=== PATIENT | female | born 1995 | race Caucasian/White ===

== ENCOUNTER 2016-06-05 21:17 | Emergency (ER) | payer OTHER ==
[2016-06-05 21:24] VITALS: BP 120/72; BMI 34.5
[2016-06-05 21:58] LABS: BILIRUBIN,URINE NEGATIVE (NEGATIVE); BLOOD/HEMOGLOBIN,URINE 2+ (NEGATIVE); GLUCOSE, URINE NEGATIVE (NEGATIVE); KETONES,URINE NEGATIVE (NEGATIVE); LEUKOCYTE ESTERASE ,URINE 1+ (NEGATIVE); NITRITES,URINE NEGATIVE (NEGATIVE); PROTEIN,URINE NEGATIVE (NEGATIVE); UROBILINOGEN,URINE NORMAL (NORMAL)
[2016-06-05 22:05] LABS: APPEARANCE,URINE CLEAR (CLEAR); BACTERIA,URINE 1+ /HPF (NEGATIVE); COLOR,URINE YELLOW (YELLOW); RBC,URINE 0-3 /HPF (NEGATIVE); SQUAMOUS EPITHELIAL CELL,UR FEW /HPF (NEGATIVE)
--- NOTE | 2016-06-05 22:07 | DR.POSSPRE ---
HPI - Time Seen Time seen: 21:55 - Primary Care Physician Primary Care Physician: FACUNDO - HPI Comment HPI Comment: PATIENT IS 18 WEEKS AND HAVING LOWER ABDOMINAL PAIN. NO DYSURIA. HAVE NOT FELT MOVEMENT.NO VAGINAL BLEEDING. - Complaints Chief Complaint Doctors Comments: LOWER ABDOMINAL PAIN, . Chief Complaint:: PAIN IN LOWER ABD SINCE FOR A COUPLE WEEKS, HAVE NOT FELT BABY MOVE AT ALL. . A1. BETH [id number] - Reviewed Nurses Notes Reviewed: Yes - Source History Provided: Patient - Mode of Arrival Mode of Arrival: Ambulatory - Timing Onset of Chief Complaint: 05/22/16 - Context Control: None Symptoms: Missed Period, Feels History of ectopic : No : 2 Para: 0 Abortions: 1 History of: None - Associated Signs and Symptoms Associated Signs and Symptoms: None - Severity If Pain: Moderate Pain Score: 6 If Nausea/Vomiting:: None` - Quality If Vaginal Bleeding:: Other (NONE) If abdominal pain:: Sharp PMH - PMH Past Medical History: No Past Medical History: Asthma Past Surgical History: No - Family History History of Family Medical Conditions: No Family Medical History: Cancer - Social History Type of Tobacco Use: Cigarettes Alcohol Use: None Do you use any recreational Drugs:: No Lives With: Family Lives Where: Home - infectious screening Have you traveled outside the country in the last 6 months?: No Isolation: Standard ROS - Review of Systems Constitutional: No Symptoms Reported Eyes: No Symptoms Reported ENTM: No Symptoms Reported Respiratoy: No Symptoms Reported Cardiovascular: No Symptoms Reported Gastrointestinal/Abdominal: Abdominal Pain Genitourinary: No Symptoms Reported Neurological: No Symptoms Reported Musculoskeletal: No Symptoms Reported Integumentary: No Symptoms Reported Hematologic/Lymphatic: No Symptoms Reported Endocrine: No Symptoms Reported All Other Systems: Reviewed and Negative PE - Vital Signs Vitals: Temperature 99.0 F Pulse Rate 102 Respiratory Rate 16 Blood Pressure [Right Arm] 152/99 Blood Pressure 120/72 O2 Sat by Pulse Oximetry 98 - General Limitations: No Limitations General Appearance: Alert - Head Head Exam: Normal Inspection - Eyes Eye exam: Normal Appearance - ENT ENT Exam: Normal External Ear Exam - Neck Neck Exam: Trachea Midline - Chest Chest Inspection: Symmetric Chest Wall Rise - Respiratory Respiratory Exam: Bilateral Clear to Auscultation - Cardiovascular Cardiovascular Exam: Regular Rate, Normal Rhythm, Normal Heart Sounds - Abdominal Exam Abdominal Exam: Normal Bowel Sounds, Soft, Tenderness Abdominal Tenderness: RLQ, LLQ, Suprapubic - Rectal Rectal Exam: Deferred - Genitourinary Exam: OB: Deferred : OB External Exam: Deferred - Extremities Extremities Exam: Normal Inspection - Back Back Exam: Normal Inspection - Neurologic Neurological Exam: Alert, Oriented X3 - Psychiatric Psychiatric Exam: Anxious - Skin Skin Exam: Normal Color MDM - Additional Information Obtained Additional Information Obtained From: Family - Differential Diagnosis Differential Diagnosis: threatened, Cystitis: acute, Urinary tract infection Course - Treatment Treatment: SEE ORDERS - Education/Counseling Education/Counseling: Patient, Family, Education Educated On: Diagnosis, Needs for Follow Up ROR - Labs Reviewed Laboratory Results Reviewed?: Yes Laboratory: HCG, Quant 80751 mIU/mL (0-6) H 06/05/16 21:50 Specimen Type Clean catch urine 06/05/16 21:50 Urine Color Yellow (YELLOW) 06/05/16 21:50 Urine Appearance Clear (CLEAR) 06/05/16 21:50 Urine pH 5.0 (5.0 - 8.0) 06/05/16 21:50 Ur Specific [place] 1.030 (1.000-1.030) 06/05/16 21:50 Urine Protein Negative (NEGATIVE) 06/05/16 21:50 Urine Glucose (UA) Negative (NEGATIVE) 06/05/16 21:50 Urine Ketones Negative (NEGATIVE) 06/05/16 21:50 Urine Occult Blood 2+ (NEGATIVE) 06/05/16 21:50 Urine Nitrite Negative (NEGATIVE) 06/05/16 21:50 Urine Bilirubin Negative (NEGATIVE) 06/05/16 21:50 Urine Urobilinogen Normal (NORMAL) 06/05/16 21:50 Ur Leukocyte Esterase 1+ (NEGATIVE) 06/05/16 21:50 Urine RBC 0-3 /HPF (NEGATIVE) 06/05/16 21:50 Urine WBC 3-5 /HPF (NEGATIVE) 06/05/16 21:50 Ur Squamous Epith Cells Few /HPF (NEGATIVE) 06/05/16 21:50 Urine Bacteria 1+ /HPF (NEGATIVE) 06/05/16 21:50 Ur Culture Indicated? No/not indicated 06/05/16 21:50 - XRAY XRAY Interpreted by: Radiologist XRAY Findings: REPORT DISCUSS WITH PATIENT. - Diagnosis Discharge Problem: Abdominal pain affecting - Discharge Plan Disposition: HOME, SELF-CARE Condition: Stable - Follow ups/Referrals Follow ups/Referrals: NFD,None [Primary Care Provider] - 06/06/16 - Instructions Instructions: Abdominal Pain During , [id number] Additional Instructions: RETURN TO ED IF WORSE. SEE OB DR. DICKSON AM.
--- NOTE | 2016-06-05 23:54 | US ---
Exam: Transabdominal pelvic ultrasound History: Pelvic pain, Comparison: No prior ultrasound for comparison Technique: Grayscale, color, and power Doppler imaging of the pelvis was performed using a transabdo jojo approach. Findings: There is an intrauterine fetus. heart rate is 142 beats per min. Estimated gestatio nal age is 20 weeks 1 day. Placenta is anteriorly located. No evidence of hemorrhage. Conclusion: Single intrauterine fetus estimated gestational age 20 weeks 1 day. Reported By:
== END 2016-06-06 00:11 | disposition home or self-care (01) ==
LOC: ER 21:32
DX: R10.31 Right lower quadrant pain (principal); Z3A.20 20 weeks gestation of pregnancy
CPT/HCPCS: 36415; 76815; 81001; 84702; 87086; 99283; 99284

== ENCOUNTER → 2016-10-14 | Outpatient (CLI) | payer OTHER ==
[2016-10-14 16:47] LABS: BILIRUBIN,URINE NEGATIVE (NEGATIVE); BLOOD/HEMOGLOBIN,URINE 3+ (NEGATIVE); GLUCOSE, URINE NEGATIVE (NEGATIVE); KETONES,URINE 2+ (NEGATIVE); LEUKOCYTE ESTERASE ,URINE 3+ (NEGATIVE); NITRITES,URINE NEGATIVE (NEGATIVE); PROTEIN,URINE 2+ (NEGATIVE); UROBILINOGEN,URINE 1+ (NORMAL)
[2016-10-14 16:49] LABS: BASOPHILS # (AUTO) 0.1 X10^3/uL (0.0-0.1); BASOPHILS % (AUTO) 0.5 % (0.2-1.0); EOSINOPHILS # (AUTO) 0.4 x10^3/uL (0.0-0.2); EOSINOPHILS % (AUTO) 2.7 % (0.9-2.9); HEMATOCRIT 38.6 % (36.0-47.0); HEMOGLOBIN 13.1 g/dL (12.0-16.0); LYMPHOCYTES # (AUTO) 2.2 X10^3/uL (1.3-2.9); LYMPHOCYTES % (AUTO) 16.1 % (21.0-51.0); MEAN CORPUSCULAR HEMOGLOBIN 27.7 pg (27.0-34.0); MEAN CORPUSCULAR HGB CONC 33.9 g/dL (33.0-35.0); MEAN CORPUSCULAR VOLUME 81.7 fL (80.0-100.0); MONOCYTES # (AUTO) 0.6 x10^3/uL (0.3-0.8); MONOCYTES % (AUTO) 4.2 % (0.0-13.0); NEUTROPHILS # (AUTO) 10.5 x10^3/uL (2.2-4.8); NEUTROPHILS % (AUTO) 76.5 % (42.0-75.0); PLATELET COUNT 254 X10^3/uL (150.0-450.0); RED BLOOD COUNT 4.73 X10^6/uL (3.5-5.4); RED CELL DISTRIBUTION WIDTH 14.8 % (11.6-16.5); WHITE BLOOD COUNT 13.7 X10^3/uL (3.6-10.0)
[2016-10-14 16:51] LABS: BLOOD UREA NITROGEN 11 mg/dL (7-18); CARBON DIOXIDE 23.1 mmol/L (21-32); CHLORIDE 104 mmol/L (98-107); CREATININE 0.61 mg/dL (0.55-1.02); GLUCOSE 104 mg/dL (65-99); SODIUM 137 mmol/L (136-145); eGFR BLACK RACES > 60 (>60); eGFR NON BLACK RACES > 60 (>60)
[2016-10-14 16:57] LABS: APPEARANCE,URINE HAZY (CLEAR); COLOR,URINE YELLOW (YELLOW); RBC,URINE 0-3 /HPF (NEGATIVE)
[2016-10-14 16:58] LABS: BACTERIA,URINE 1+ /HPF (NEGATIVE); SQUAMOUS EPITHELIAL CELL,UR FEW /HPF (NEGATIVE)
== END ==
LOC: LAB 16:17
PROVIDERS: ATTEND Specialist
DX: Z01.818 Encounter for other preprocedural examination (principal); Z34.83 Encounter for supervision of other normal pregnancy, third trimester
CPT/HCPCS: 36415; 80048; 81001; 85025; 86592; 86850; 86900; 86901; 87086

== ENCOUNTER 2016-10-16 06:36 | Inpatient (IN) | payer OTHER ==
[~2016-10-16 06:36] MED LIST: D5 1/2 NS 1000 ML 1,000 ML IV ONE; D5 1/2 NS 1000ML W PITOCIN 20 U/L 1,000 ML IV ONE; D5LR 1L W PITOCIN 10 UNITS/L 1,000 ML IV ONE; FENTANYL INJ 100 mcg ONE; LR 1000 ML IV 1,000 ML IV ONE; NAROPIN EPIDURAL 0.2% + FENTANYL 90MCG 60 ML EPI ONE; PITOCIN ONE
--- NOTE | 2016-10-16 07:15 | DR.OB ---
OB Quick Note - Assessment/Plan Assessment/Plan: L&D 10/16/16 at 7:00am S-No complaint. O-Afebrile,VSS BBV=395 with good LTV, +accel, no decel. CTX=none CVX=1cm/thick/-1/VTX AROM with clear fluid. IUPC placed. A-IUP at 39 2/7 weeks for induction P-Begin pitocin induction Anticipate
[2016-10-16] MEDS ORDERED: MORPHINE SULFATE INJ 2 MG IVP PRN (07:28)
[2016-10-16] MEDS ORDERED: NUBAIN INJ 200 MG VIAL MULTIDOSE IVP PRN (07:28)
[2016-10-16] MEDS ORDERED: D5 1/2 NS 1000 ML 1,000 ML IV SCH (07:28)
[2016-10-16] MEDS ORDERED: PHENERGAN INJ 25 MG IV PRN ×2 (07:28→18:13)
[2016-10-16] MEDS ORDERED: PITOCIN IVP ONE (07:28)
[2016-10-16] MEDS ORDERED: REGLAN INJ 10 MG VIAL IVP PRN ×4 (07:28→18:13)
[2016-10-16] MEDS ORDERED: PITOCIN 10 UNITS in D5 LR 1000 ML 1,000 ML IV PRN (07:28)
[2016-10-16] MEDS ORDERED: NUBAIN INJ 10 ONE (11:50)
--- NOTE | 2016-10-16 12:13 | DR.OB ---
OB Quick Note - Assessment/Plan Assessment/Plan: L&D 10/16/16 at 12:10pm Pitocin=16mu/min. S-No complaint. O-Afebrile,VSS OXF=472 with good LTV, +accel, no decel. CTX=q 1 1/2 to 2 min., about 55-65mmHg CVX=2-3cm/50%/-1/VTX A-IUP at 39 2/7 weeks for induction P-Cont. pitocin induction Anticipate
[2016-10-16] MEDS ORDERED: LR 1000 ML IV 1,000 ML IV ONE ×3 (13:30→16:42)
[2016-10-16] MEDS: FENTANYL INJ 100 mcg EPI ONE ×2 (13:59→14:00)
[2016-10-16] MEDS ORDERED: NAROPIN EPIDURAL 0.2% 60 ML with FENTANYL INJ 100 mcg 90 MCG IVP SCH ×2 (15:00)
[2016-10-16] MEDS ORDERED: XYLOCAINE 2 % (PLAIN) ONE (15:42)
[2016-10-16] MEDS ORDERED: PITOCIN ONE (15:42)
[2016-10-16] MEDS ORDERED: DIPRIVAN VIAL ONE (15:42)
[2016-10-16] MEDS ORDERED: ZOFRAN INJ 4 MG VIAL ONE (15:42)
[2016-10-16] MEDS ORDERED: NS 50 ML IV + SPIKE MINIBAG* 50 ML IV ONE (16:33)
[2016-10-16] MEDS ORDERED: ANCEF VIAL 1 GM ONE (16:33)
[2016-10-16] MEDS ORDERED: XYLOCAINE 2% and EPINEPHRINE 1:100,000 ONE (16:37)
--- NOTE | 2016-10-16 16:50 | DR.OB ---
OB Quick Note - Assessment/Plan Assessment/Plan: L&D 10/16/16 at 4:30pm Pitocin=16mu/min. S-No complaint. s/p epidural. O-Afebrile,VSS EGG=591 with poor LTV, occ. accel, repetitive mild variables with intermittent late decels. CTX=q 1 1/2 min., about 35-55mmHg CVX=3cm/50%/-1/VTX with caput forming (no change since at least noon) A-IUP at 39 2/7 weeks with failure to dilate and non-reassuring FHT P-To C/S
[2016-10-16] MEDS ORDERED: NS IRRIGATION 1000 ML 1,000 ML IR ONE (17:15)
[2016-10-16] MEDS ORDERED: DURAMORPH ONE (17:21)
[2016-10-16] MEDS ORDERED: BENADRYL INJ 50 MG VIAL IVP PRN ×2 (17:54→18:13)
[2016-10-16] MEDS ORDERED: PHENERGAN INJ 25 MG IVP PRN (17:54)
[2016-10-16] MEDS ORDERED: ZOFRAN INJ 4 MG VIAL IVP PRN ×2 (17:54→18:13)
[2016-10-16] MEDS ORDERED: TORADOL 30 MG VIAL IVP PRN (18:13)
[2016-10-16] MEDS ORDERED: PERCOCET TAB 5/325 MG PO PRN (18:13)
[2016-10-16] MEDS ORDERED: NARCAN INJ IVP PRN (18:13)
[2016-10-16] MEDS ORDERED: ADACEL TDaP IM ONE ×2 (18:13→21:18)
[2016-10-16] MEDS ORDERED: D5 1/2 NS 1000 ML 1,000 ML with PITOCIN 20 UNITS IV SCH ×2 (18:13)
[2016-10-16] MEDS ORDERED: MYLICON TAB 80 MG CHEW PO PRN (18:13)
[2016-10-16] MEDS: ZANTAC PO SCH (21:22)
[2016-10-17 05:20] LABS: HEMATOCRIT 32.5 % (36.0-47.0); HEMOGLOBIN 11.1 g/dL (12.0-16.0)
[2016-10-17] MEDS ORDERED: PRENATAL PLUS PO SCH (09:00)
[2016-10-17] MEDS: ZANTAC PO SCH ×2 (09:33→20:49)
[2016-10-17] MEDS: COLACE CAP 100 MG PO SCH ×2 (09:33→20:49)
[2016-10-17] MEDS: MOTRIN TAB 800 MG PO PRN (13:29)
[2016-10-17] MEDS: BACTROBAN OINT TOP SCH ×2 (14:30→22:07)
[2016-10-17] MEDS: PERCOCET TAB 5/325 MG PO PRN (20:49)
[2016-10-18] MEDS: MOTRIN TAB 800 MG PO PRN (02:19)
[2016-10-18] MEDS: BACTROBAN OINT TOP SCH (05:44)
[2016-10-18] MEDS: PERCOCET TAB 5/325 MG PO PRN (06:08)
[2016-10-18 08:07] VITALS: BP 113/57
== END 2016-10-18 11:00 | disposition home or self-care (01) | DRG 766 ==
LOC: LD 06:36 → MED/SURG 18:18
PROVIDERS: ADMIT Specialist; ATTEND Specialist
PROC: 3E0234Z Introduction of Serum, Toxoid and Vaccine into Muscle, Percutaneous Approach (ICD-10-PCS; 2016-10-16)
PROC: 10D00Z1 Extraction of Products of Conception, Low, Open Approach (ICD-10-PCS; principal; 2016-10-16 16:45)
DX: O62.0 Primary inadequate contractions (principal); Z37.0 Single live birth; O77.8 Labor and delivery complicated by other evidence of fetal stress; Z3A.39 39 weeks gestation of pregnancy; Z23 Encounter for immunization
CPT/HCPCS: 36415; 85014; 85018; 94760; A4216; A4222; S0197; J0690; J1885; J2001; J2300; J2405; J2590; J3010; J3490; J7042; J7120

== ENCOUNTER 2017-02-02 23:46 | Emergency (ER) | payer OTHER ==
[2017-02-02 23:54] VITALS: BMI 33.3
[2017-02-03] MEDS ORDERED: ASPIRIN PO ONE (00:35)
[2017-02-03 00:38] VITALS: BP 114/69
--- NOTE | 2017-02-03 00:38 | DR.GENAD ---
HPI - PCP Primary Care Physician: GUILLERMO - Complaint/Symptoms Chief Complaint Doctors Comments: Patient is complaining of dizziness, weakness with headache and problems with stress and is worried that her blood pressure maybe elevated. states she hasa been feeling dizzy all day and has not been able to work with chest pain and feeling like her heart fluttering from 6am. statse she smokes 1/2 pack cigarettes daily but denies alcohol or drug usage. states she had had normal periods and just had a child four months ago and has not been sexually active since child . States she has been having nocturia but denies fever, chills, nausea, hematuria. States she has been having a lot of stress because her child has respiratory problems and she has to be up at night giving her breathing treatments and watching her breath. She has been having nasal congestion but no problems with her balance. Chief Complaint:: LIGHT HEADED; WEAK; POUNDING HEADACHE Self Treatment fo Chief Complaint: NO TX - Nurses notes reviewed Nurses Notes Review: Yes - Source History Provided: Patient - Mode of Arrival Mode of Arrival: Ambulatory - Timing Onset of Chief Complaint: 02/02/17 Came on: Gradually - Duration Duration: Constant How lon Duration: Hours - Location Location: chest pain - Severity Severity: Mild - Modifying Factors Worsens:: nothing Improves:: nothing PMH - PMH Past Medical History: No Past Medical History: Asthma Past Surgical History: Yes Surgical History: - Family History History of Family Medical Conditions: No Family Medical History: Cancer - Social History Does patient currently use any type of tobacco product: Yes Have you used tobacco products in the last 12 months: Yes Type of Tobacco Use: None Do you use any recreational Drugs:: No Lives With: Family Lives Where: Home - infectious screening Have you traveled outside the country in the last 6 months?: No ROS - Review of Systems Constitutional: No Symptoms Reported, Weakness, Loss of Appetite. negative: See HPI, Chills, Diaphoresis, Fever, Malaise, Irritable, Fatigue, Other Eyes: No Symptoms Reported. negative: See HPI, Eye Pain, Blurred Vision, Tearing, Discharge, Photophobia, Diplopia, Other ENTM: No Symptoms Reported Respiratoy: No Symptoms Reported, Short of Breath Cardiovascular: Chest Pain, Palpitations. negative: No Symptoms Reported, See HPI, Edema, Syncope, Cyanosis, Skin Mottling, Other Gastrointestinal/Abdominal: No Symptoms Reported. negative: See HPI, Abdominal Pain, Constipation, Diarrhea, Nausea, Vomiting, Food Intolerance, Other Genitourinary: No Symptoms Reported, Frequency. negative: See HPI, Discharge, Dysuria, Hematuria, Pain, Bleeding, Other Neurological: No Symptoms Reported, Anxiety, Emotional Problems, Headache, Weakness, Dizziness. negative: See HPI, Depressed, Numbness, Paresthesia, Pre- existing Deficit, Seizure, Tingling, Tremors, Problems Walking, Speech Problem, Other Musculoskeletal: No Symptoms Reported Integumentary: No Symptoms Reported Hematologic/Lymphatic: No Symptoms Reported Endocrine: No Symptoms Reported Psychiatric: No Symptoms Reported, Anxiety PE - Vital Signs Vitals: Temperature 97.8 F Pulse Rate [Right Brachial] 88 Pulse Rate 84 Respiratory Rate 17 Blood Pressure [Left Arm] 113/57 Blood Pressure [Right Arm] 114/69 Blood Pressure 124/75 O2 Sat by Pulse Oximetry 100 - General Limitations: No Limitations General Appearance: Alert, In No Apparent Distress. negative: Appears Intoxicated, Anxious, Lethargic, Obtunded, In Distress, Obese, Cachectic, Other - Head Head Exam: Normal Inspection, Atraumatic, Normocephalic - Eyes Eye exam: Normal Appearance, PERRL, EOMI. negative: Scleral Icterus, Conjunctival Injection, Nystagmus, Miosis, Mydrasis, Periorbital Swelling, Periorbital Tenderness, Other - ENT ENT Exam: Normal Exam, Normal Oropharynx, Normal External Ear Exam, Mucous Membranes Moist, TM's Normal Bilaterally External Ear Exam: Normal External Inspection TM/Canal Exam: Bilateral Normal Nose Exam: Normal Nose Exam Mouth Exam: Normal Inspection Throat Exam: Normal Inspection - Neck Neck Exam: Normal Inspection, Full ROM, Trachea Midline. negative: Tenderness, Meningismus, Lymphadenopathy, Thyromegaly, Other - Chest Chest Inspection: Normal Inspection, Symmetric Chest Wall Rise. negative: Tenderness, Rash, Abscess, Other - Respiratory Respiratory Exam: Normal Lung Sounds Bilat Respiratory Exam: Bilateral Clear to Auscultation - Cardiovascular Cardiovascular Exam: Regular Rate, Normal Rhythm, Normal Heart Sounds. negative : Bradycardia, Tachycardia, Irregular Rhythm, Systolic Murmur, Diastolic Murmur , Rubs, Gallop, Clicks, JVD, +S1, +S2, +S3, +S4, Other - Abdominal Exam Abdominal Exam: Normal Inspection, Normal Bowel Sounds, Soft Abdominal Tenderness: negative: RUQ, RLQ, LUQ, LLQ, Epigastrium, Suprapubic, Diffuse, Mild, Moderate, Severe, Other - Extremities Extremities Exam: Normal Inspection, Full ROM, Normal Capillary Refill. negative: Tenderness, Edema, Joint Swelling, Calf Tenderness, Other - Back Back Exam: Normal Inspection, Full ROM. negative: Tenderness, (R) CVA Tenderness, (L) CVA Tenderness, Muscle Spasm, Paraspinal Tenderness, Vertebral Tenderness, Rashes, (R) Sciatic Notch Tenderness, (L) Sciatic Notch Tendern, (R ) Straight Leg Raise, (L) Straight Leg Raise, Other - Neurologic Neurological Exam: Alert, Oriented X3, CN II-XII Intact, Normal Gait, Reflexes Normal - Psychiatric Psychiatric Exam: Normal Affect, Normal Mood. negative: Depressed, Agitated, Anxious, Flat Affect, Manic, Homicidal Ideation, Suicidal Ideation, Other - Skin Skin Exam: Warm, Dry, Intact, Normal Color ROR - Labs Reviewed Laboratory Results Reviewed?: Yes (all labs and x-ray results reviewed and discussed with patient) Result Diagrams: 02/03/17 00:46 02/03/17 00:46 Laboratory: WBC 14.0 X10^3/uL (3.6-10.0) H 02/03/17 00:46 RBC 5.27 X10^6/uL (3.5-5.4) 02/03/17 00:46 Hgb 13.5 g/dL (12.0-16.0) 02/03/17 00:46 Hct 40.3 % (36.0-47.0) 02/03/17 00:46 MCV 76.6 fL (80.0-100.0) L 02/03/17 00:46 MCH 25.6 pg (27.0-34.0) L 02/03/17 00:46 MCHC 33.4 g/dL (33.0-35.0) 02/03/17 00:46 RDW 14.2 % (11.6-16.5) 02/03/17 00:46 Plt Count 284 X10^3/uL (150.0-450.0) 02/03/17 00:46 Plt Count Comment Adequate (ADEQUATE) 02/03/17 00:46 MPV 8.8 fL (7.4-11.0) 02/03/17 00:46 Neut % 59.9 % (42.0-75.0) 02/03/17 00:46 Lymph % 28.0 % (21.0-51.0) 02/03/17 00:46 Teller % 5.5 % (0.0-13.0) 02/03/17 00:46 Eos % 6.2 % (0.9-2.9) H 02/03/17 00:46 Baso % 0.4 % (0.2-1.0) 02/03/17 00:46 Neut # 8.4 x10^3/uL (2.2-4.8) H 02/03/17 00:46 Lymph # 3.9 X10^3/uL (1.3-2.9) H 02/03/17 00:46 Teller # 0.8 x10^3/uL (0.3-0.8) 02/03/17 00:46 Eos # 0.9 x10^3/uL (0.0-0.2) H 02/03/17 00:46 Baso # 0.1 X10^3/uL (0.0-0.1) 02/03/17 00:46 Absolute Nucleated RBC 0.0 /100WBC 02/03/17 00:46 Plt Morphology Comment Normal (NORMAL) 02/03/17 00:46 RBC Morphology Normal (NORMAL) 02/03/17 00:46 INR Target Range - 02/03/17 00:46 INR 0.99 (0.8-1.3) 02/03/17 00:46 PTT 29.7 SECONDS (22.9-36.5) 02/03/17 00:46 PTT Comment - 02/03/17 00:46 D-Dimer < 100 ng/mL (0-400) 02/03/17 00:46 Sodium 140 mmol/L (136-145) 02/03/17 00:46 Corrected Sodium TNP 02/03/17 00:46 Potassium 3.8 mmol/L (3.5-5.1) 02/03/17 00:46 Chloride 104 mmol/L (98-107) 02/03/17 00:46 Carbon Dioxide 25.4 mmol/L (21-32) 02/03/17 00:46 BUN 16 mg/dL (7-18) 02/03/17 00:46 Creatinine 0.67 mg/dL (0.55-1.02) 02/03/17 00:46 Est GFR (MDRD) Af Amer > 60 (>60) 02/03/17 00:46 Est GFR (MDRD) Non-Af > 60 (>60) 02/03/17 00:46 Glucose 79 mg/dL (65-99) 02/03/17 00:46 Calcium 9.7 mg/dL (8.5-10.1) 02/03/17 00:46 Corrected Calcium TNP 02/03/17 00:46 Magnesium 1.7 mg/dL (1.7-2.9) 02/03/17 00:46 Total Bilirubin 0.60 mg/dL (0.2-1.0) 02/03/17 00:46 AST 15 Units/L (15-37) 02/03/17 00:46 ALT 41 Units/L (12-78) 02/03/17 00:46 Alkaline Phosphatase 89 Units/L (46-116) 02/03/17 00:46 Creatine Kinase 101 Units/L (26-192) 02/03/17 00:46 CK-MB (CK-2) 1.4 ng/mL (0-4.0) 02/03/17 00:46 CK/CKMB % Calc 1.4 % (<4) 02/03/17 00:46 Troponin I < 0.02 ng/mL (0-1.5) 02/03/17 00:46 Total Protein 7.9 g/dL (6.4-8.2) 02/03/17 00:46 Albumin 4.2 g/dL (3.4-5.0) 02/03/17 00:46 Globulin 3.7 g/dL (2.5-4.5) 02/03/17 00:46 Albumin/Globulin Ratio 1.1 Ratio (1.1-2.1) 02/03/17 00:46 HCG, Qual Negative <10 mIU/mL 02/03/17 00:46 - XRAY XRAY Interpreted by: Radiologist (CXR: No acute chest processs or significant change from prior) - EKG Rate: 75 [place]: Normal Rhythm: NSR Block: None Hypertrophy: None ST: Normal (sinus arrthmia) - Diagnosis Discharge Problem: Shortness of breath, Sinus arrhythmia Sinusitis, acute Qualifiers: Sinusitis location: maxillary Chest pain Qualifiers: Chest pain type: unspecified Qualified Code(s): R07.9 - Chest pain, unspecified - Discharge Plan Disposition: HOME, SELF-CARE Condition: Stable Prescriptions: Amoxicillin 500 mg PO TID #30 cap Cetirizine HCl [Zyrtec Tab 10 mg] 10 mg PO DAILY #30 tab - Follow ups/Referrals Follow ups/Referrals: LATESHA GUILLERMO [Primary Care Provider] - 3 days - Instructions Instructions: Shortness of Breath, Pediatric, Sinusitis, Adult, [id number], Vertigo, [id number]
[2017-02-03 01:14] LABS: BLOOD UREA NITROGEN 16 mg/dL (7-18); CALCIUM 9.7 mg/dL (8.5-10.1); CARBON DIOXIDE 25.4 mmol/L (21-32); CHLORIDE 104 mmol/L (98-107); CREATININE 0.67 mg/dL (0.55-1.02); SODIUM 140 mmol/L (136-145); TROPONIN I < 0.02 ng/mL (0-1.5); eGFR BLACK RACES > 60 (>60); eGFR NON BLACK RACES > 60 (>60)
[2017-02-03 01:15] LABS: BASOPHILS # (AUTO) 0.1 X10^3/uL (0.0-0.1); BASOPHILS % (AUTO) 0.4 % (0.2-1.0); EOSINOPHILS # (AUTO) 0.9 x10^3/uL (0.0-0.2); EOSINOPHILS % (AUTO) 6.2 % (0.9-2.9); HEMATOCRIT 40.3 % (36.0-47.0); HEMOGLOBIN 13.5 g/dL (12.0-16.0); LYMPHOCYTES # (AUTO) 3.9 X10^3/uL (1.3-2.9); MEAN CORPUSCULAR HEMOGLOBIN 25.6 pg (27.0-34.0); MEAN CORPUSCULAR HGB CONC 33.4 g/dL (33.0-35.0); MEAN CORPUSCULAR VOLUME 76.6 fL (80.0-100.0); MEAN PLATELET VOLUME 8.8 fL (7.4-11.0); MONOCYTES # (AUTO) 0.8 x10^3/uL (0.3-0.8); MONOCYTES % (AUTO) 5.5 % (0.0-13.0); NEUTROPHILS # (AUTO) 8.4 x10^3/uL (2.2-4.8); NEUTROPHILS % (AUTO) 59.9 % (42.0-75.0); PLATELET COUNT 284 X10^3/uL (150.0-450.0); RED BLOOD COUNT 5.27 X10^6/uL (3.5-5.4); RED CELL DISTRIBUTION WIDTH 14.2 % (11.6-16.5)
[2017-02-03 01:16] LABS: SERUM PREGNANCY TEST, QUAL NEGATIVE <10 mIU/mL
[2017-02-03 01:19] LABS: ALANINE AMINOTRANSFERASE 41 Units/L (12-78); ALBUMIN 4.2 g/dL (3.4-5.0); ALKALINE PHOSPHATASE 89 Units/L (46-116); ASPARTATE AMINO TRANSFERASE 15 Units/L (15-37); CKMB % 1.4 % (<4); CREATINE KINASE 101 Units/L (26-192); CREATINE KINASE MB 1.4 ng/mL (0-4.0); MAGNESIUM 1.7 mg/dL (1.7-2.9); TOTAL PROTEIN 7.9 g/dL (6.4-8.2)
[2017-02-03] MEDS ORDERED: ASPIRIN ONE (01:21)
[2017-02-03 01:26] LABS: PLATELET MORPHOLOGY COMMENT NORMAL (NORMAL)
--- NOTE | 2017-02-03 02:22 | RAD ---
Chest, one view Indication: Chest pain, heart flutter Comparison: 02/24/2013 Findings: For cardiac silhouette is unremarkable. The lungs are essentially clear without focal infil trates or significant pleural effusion. Impression: No acute chest process or significant change from prior. Reported By:
[2017-02-03] MEDS ORDERED: AUGMENTIN 500 MG/125 MG TAB PO ONE ×2 (02:32→02:43)
[2017-02-03] MEDS ORDERED: CLARITIN PO STA (02:32)
[2017-02-03] MEDS ORDERED: CLARITIN ONE (02:43)
== END 2017-02-03 02:49 | disposition home or self-care (01) ==
LOC: ER 23:46
DX: R06.02 Shortness of breath (principal); I49.9 Cardiac arrhythmia, unspecified; J01.80 Other acute sinusitis; R07.89 Other chest pain
CPT/HCPCS: 36415; 71010; 80053; 82550; 82553; 83735; 84484; 84703; 85025; 85378; 85610; 85730; 93005; 93010; 99283